=== PATIENT | male | born 1995 | race African-American/Black ===

== ENCOUNTER 2020-04-20 19:54 | Emergency (ER) | payer SELFPAY ==
[~2020-04-20] VITALS: Ht 170.2 cm; Wt 75.0 kg
[2020-04-20 20:18] VITALS: TEMP 102.1
[2020-04-20 21:19] LABS: HEMOGLOBIN 10.4 g/dl (13.5-18.0); MEAN CELL VOLUME 88 fl (80.0-100.0); MEAN CORPUSCULAR HEMOGLOBIN 30 pg (27.0-31.0); MEAN CORPUSCULAR HGB CONC 34 g/dl (33.0-37.0); MEAN PLATELET VOLUME 11.2 fl (7.4-10.4); PLATELET COUNT 379 K/mm3 (130-400); RED BLOOD COUNT 3.48 M/mm3 (4.20-5.60); REDCELL DISTRIBUTION WIDTH-CV 11.8 % (11.5-14.5)
[2020-04-20 21:23] LABS: HEMATOCRIT 30.5 % (42.0-52.0)
[2020-04-20 21:30] LABS: ALBUMIN 3.7 gm/dL (3.5-5.0); CALCIUM 8.3 mg/dL (8.4-10.2); CREATININE, serum 0.86 (0.66-1.25); POTASSIUM 3.6 mmol/L (3.4-5.0); TOTAL PROTEIN 7.6 gm/dL (6.4-8.2)
[2020-04-20 23:16] LABS: BAND 8 % (0-10); LYMPHOCYTE 5 % (20.0-51.0); NEUTROPHILS 77 % (42.0-75.2); PLATELET ESTIMATE NORMAL (NORMAL)
--- NOTE | 2020-04-21 02:25 | NUR ---
Vancomycin Initial Dosing Pharmacy Note Ordering provider: Indication/duration: Pneumonia, 7 days Relevant comorbidities: LABS: WBC = 32.5, SCr = 0.86 Recommendation: Will check troughs and follow levels. Loading dose: 1.5 grams Maintenance dose: 1.25 grams every 8 hours Trough goal: 15-20 ug/mL
[2020-04-21 04:10] VITALS: BP 117/65; PULSE 100
[2020-04-21 17:43] LABS: PROCALCITONIN 0.83 ng/mL (0.00-0.09)
== END 2020-04-21 04:10 | disposition left against medical advice (07) ==
LOC: COL.ER 19:54
PROVIDERS: Emergency Medicine; Student in an Organized Health Care Education/Training Program
DX: J18.9 Pneumonia, unspecified organism (principal); A41.9 Sepsis, unspecified organism; E87.1 Hypo-osmolality and hyponatremia; D64.9 Anemia, unspecified; Z20.828 Contact with and (suspected) exposure to other viral communicable diseases
CPT/HCPCS: J0456; J0696; J2543; J3370; J7030; J7050